=== PATIENT | female | born 1995 | race Caucasian/White ===

== ENCOUNTER 2018-05-17 13:14 | Emergency (ER) | payer MEDICAID ==
[~2018-05-17] VITALS: Ht 180.3 cm; Wt 99.3 kg
[2018-05-17] MEDS ORDERED: sucralfate 1gm/10ml UD suspension PO STA (15:51)
[2018-05-17] MEDS ORDERED: LIDOcaine Viscous 15ml cup MM ONE (15:55)
[2018-05-17] MEDS ORDERED: mag hydrox/Alum hydrox/simeth 30ml oral suspension PO ONE (15:55)
[2018-05-17 16:12] LABS: BASOPHILS % (AUTO) 0.4 % (0-1); EOSINOPHILS # (AUTO) 0.2 X10'3 (0-0.9); EOSINOPHILS % (AUTO) 2.2 % (0-6); HEMATOCRIT 35.3 % (35.0-45.0); HEMOGLOBIN 11.9 g/dl (12.0-16.0); LYMPHOCYTES # (AUTO) 2.2 X10'3 (1.1-4.8); LYMPHOCYTES % (AUTO) 29.6 % (21-51); MEAN CORPUSCULAR HEMOGLOBIN 28.8 PG (27.0-31.0); MEAN CORPUSCULAR HGB CONC 33.6 % (33.0-36.5); MEAN CORPUSCULAR VOLUME 85.4 FL (78-98); MEAN PLATELET VOLUME 8.2 FL (7.4-10.4); MONOCYTES # (AUTO) 0.3 X10'3 (0-0.9); MONOCYTES % (AUTO) 4.1 % (2-12); NEUTROPHILS # (AUTO) 4.6 X10'3 (1.8-7.7); NEUTROPHILS % (AUTO) 63.7 % (42-75); PLATELET COUNT 254 X10'3 (140-440); RED BLOOD COUNT 4.13 X10'6 (4.20-5.60); RED CELL DISTRIBUTION WIDTH 12.9 % (11.5-14.5); WHITE BLOOD COUNT 7.3 X10'3 (4.5-11.0)
[2018-05-17 16:23] LABS: ALANINE AMINOTRANSFERASE 22 U/L (12-78); ALBUMIN 3.5 G/DL (3.4-5.0); ALBUMIN/GLOBULIN RATIO 0.9 (1.1-1.5); ALKALINE PHOSPHATASE 80 IU/L (46-116); ANION GAP 10 (8-16); ASPARTATE AMINO TRANSFERASE 17 U/L (10-37); BILIRUBIN,TOTAL 0.3 MG/DL (0.1-1.0); BLOOD UREA NITROGEN 11 MG/DL (7-18); BUN/CREATININE RATIO 14.3 (6.6-38.0); CALCIUM 8.8 MG/DL (8.5-10.1); CHLORIDE 105 MMOL/L (99-107); CREATININE 0.77 MG/DL (0.40-0.90); GLUCOSE 97 MG/DL (70-104); POTASSIUM 3.8 MMOL/L (3.5-5.1); SODIUM 141 MMOL/L (135-145); TOTAL CARBON DIOXIDE 25.7 MMOL/L (24-32); TOTAL PROTEIN 7.3 G/DL (6.4-8.2); eGFR > 90 ML/MIN
[2018-05-17 16:51] LABS: URINE HCG NEGATIVE (NEG)
[2018-05-17 17:45] VITALS: BP 128/76
[2018-05-17] MEDS ORDERED: ESOM40CA PO (17:46)
[2018-05-18] MEDS ORDERED: pantoprazole 40mg Tablet.DR PO SCH (07:30)
== END 2018-05-17 18:23 | disposition home or self-care (01) ==
LOC: ER 13:15
DX: R10.13 Epigastric pain (principal)
CPT/HCPCS: 36415; 80053; 81025; 85025; 99283; 99284

== ENCOUNTER 2021-01-12 10:31 | Emergency (ER) | payer MEDICAID ==
[~2021-01-12] VITALS: Ht 180.3 cm; Wt 94.0 kg
[2021-01-12 10:46] VITALS: BP 114/73
[2021-01-12] MEDS ORDERED: METH4TAB81 PO (11:36)
[2021-01-12] MEDS ORDERED: DOXY100C77 PO (11:36)
== END 2021-01-12 12:05 | disposition home or self-care (01) ==
LOC: ER 10:32 → MERGE 10:32 → ER 12:05
DX: L02.214 Cutaneous abscess of groin (principal)
CPT/HCPCS: 99283

== ENCOUNTER 2021-01-22 10:15 | Emergency (ER) | payer MEDICAID ==
[~2021-01-22] VITALS: Ht 180.3 cm; Wt 93.6 kg
[~2021-01-22 10:15] MED LIST: DOXY100C77 PO; METH4TAB81 PO
[2021-01-22] MEDS ORDERED: ondansetron/PF 4mg/2ml inj IV ONE (11:05)
[2021-01-22] MEDS ORDERED: morphine 4 MG/ML inj SYRINge IV PRN (11:05)
[2021-01-22] MEDS ORDERED: normal saline 1000ML IV soln IVB ONE (11:05)
[2021-01-22 11:20] LABS: BASOPHILS % (AUTO) 0.2 % (0-1); EOSINOPHILS # (AUTO) 0.2 X10'3 (0-0.9); EOSINOPHILS % (AUTO) 2.1 % (0-6); HEMATOCRIT 39.6 % (35.0-45.0); HEMOGLOBIN 13.3 g/dl (12.0-16.0); LYMPHOCYTES # (AUTO) 1.3 X10'3 (1.1-4.8); LYMPHOCYTES % (AUTO) 13.8 % (21-51); MEAN CORPUSCULAR HEMOGLOBIN 28.9 PG (27.0-31.0); MEAN CORPUSCULAR HGB CONC 33.6 g/dL (33.0-36.5); MEAN CORPUSCULAR VOLUME 86.1 FL (78-98); MEAN PLATELET VOLUME 7.7 FL (7.4-10.4); MONOCYTES # (AUTO) 0.4 X10'3 (0-0.9); MONOCYTES % (AUTO) 4.5 % (2-12); NEUTROPHILS # (AUTO) 7.7 X10'3 (1.8-7.7); NEUTROPHILS % (AUTO) 79.4 % (42-75); PLATELET COUNT 284 X10'3 (140-440); RED CELL DISTRIBUTION WIDTH 13.7 % (11.5-14.5); WHITE BLOOD COUNT 9.7 X10'3 (4.5-11.0)
[2021-01-22 11:32] LABS: ALANINE AMINOTRANSFERASE 18 U/L (12-78); ALBUMIN 3.8 G/DL (3.4-5.0); ALKALINE PHOSPHATASE 83 IU/L (46-116); ANION GAP 11 (8-16); ASPARTATE AMINO TRANSFERASE 18 U/L (10-37); BILIRUBIN,TOTAL 0.5 MG/DL (0.1-1.0); BLOOD UREA NITROGEN 13 MG/DL (7-18); BUN/CREATININE RATIO 14.4 (6.6-38.0); CHLORIDE 106 MMOL/L (99-107); GLUCOSE 98 MG/DL (70-104); LIPASE < 50 U/L (73-393); POTASSIUM 3.7 MMOL/L (3.5-5.1); SODIUM 142 MMOL/L (135-145); TOTAL CARBON DIOXIDE 25.5 MMOL/L (24-32); TOTAL PROTEIN 7.7 G/DL (6.4-8.2); eGFR 76 ML/MIN
[2021-01-22 13:38] LABS: URINE HCG NEGATIVE (NEG)
[2021-01-22] MEDS ORDERED: ketorolac trometh. 30mg/ml inj. IV ONE (13:45)
[2021-01-22 13:46] LABS: CLARITY,URINE SLIGHTLY CLOUDY (Clear); COLOR,URINE YELLOW (Yellow); UA COLLECTION TYPE CLN CATCH MIDSTREAM
[2021-01-22] MEDS ORDERED: iohexol 350MG/ML 100ml bottle IV ONE (13:46)
[2021-01-22 13:52] LABS: PH,URINE 7.5 (4.8-8.0)
[2021-01-22 13:53] LABS: GLUCOSE, URINE NEGATIVE (Neg); KETONES,URINE NEGATIVE (Neg); LEUKOCYTE ESTERASE ,URINE NEGATIVE (Neg); NITRITES, URINE NEGATIVE (Neg); OCCULT BLOOD,URINE TRACE-INTACT (Neg); PROTEIN,URINE NEGATIVE (Neg); UROBILINOGEN,URINE 0.2 E.U/dL (0.2-1.0)
[2021-01-22 13:55] LABS: MUCUS STRANDS MANY /LPF (Neg); SQUAMOUS EPITHELIAL CELL,UR MODERATE /LPF (FEW)
[2021-01-22 13:56] LABS: BACTERIA,URINE NONE SEEN /HPF (Neg); RBC,URINE 0-2 /HPF (0-2); WBC,URINE 0-4 /HPF (0-4)
[2021-01-22] MEDS ORDERED: HYDR-3965 PO (14:49)
[2021-01-22] MEDS ORDERED: ONDA4TAB6 PO (14:49)
[2021-01-22] MEDS ORDERED: PENI250T2 PO (15:03)
[2021-01-22 15:27] VITALS: BP 103/64
== END 2021-01-22 17:08 | disposition home or self-care (01) ==
LOC: ER 10:15
DX: R10.13 Epigastric pain (principal); Z20.822 Contact with and (suspected) exposure to COVID-19; R11.2 Nausea with vomiting, unspecified; R19.7 Diarrhea, unspecified; R53.1 Weakness; R05 Cough; R51.9 Headache, unspecified; K04.7 Periapical abscess without sinus; Z72.89 Other problems related to lifestyle; Z79.2 Long term (current) use of antibiotics; Z79.899 Other long term (current) drug therapy
CPT/HCPCS: 36415; 71045; 74176; 80053; 81001; 81025; 83605; 83690; 84145; 85025; 87040; 87635; 96361; 96374; 96375; 99285; C9803; J1885; J2270; J2405; J7030; Q9967

== ENCOUNTER 2022-02-03 18:03 | Emergency (ER) | payer MEDICAID ==
[~2022-02-03] VITALS: Ht 180.3 cm; Wt 95.5 kg
[~2022-02-03 18:03] MED LIST changes: -DOXY100C77 PO; +ONDA4TAB6 PO
[2022-02-03 18:15] VITALS: BP 148/95
[2022-02-03] MEDS ORDERED: ketorolac trometh inj. 60 MG/2 ML VIAL IM ONE (19:40)
[2022-02-03] MEDS ORDERED: gabapentin 300mg capsule PO ONE (19:40)
[2022-02-03] MEDS ORDERED: IBUP-1986 PO (19:43)
[2022-02-03] MEDS ORDERED: GABA-530 PO (19:43)
== END 2022-02-03 20:02 | disposition home or self-care (01) ==
LOC: ER 18:04
DX: K08.89 Other specified disorders of teeth and supporting structures (principal)
CPT/HCPCS: 96372; 99283; J1885

== ENCOUNTER 2022-05-02 09:53 | Emergency (ER) | payer MEDICAID ==
[~2022-05-02] VITALS: Ht 180.3 cm; Wt 93.2 kg
[~2022-05-02 09:53] MED LIST changes: +GABA-530 PO; +IBUP-1986 PO
[2022-05-02 10:36] VITALS: BP 117/82
[2022-05-02] MEDS ORDERED: azithromycin 250mg tablet PO ONE (12:55)
[2022-05-02] MEDS ORDERED: ondansetron 4mg rapidly disintigrating tab PO ONE (12:55)
[2022-05-02] MEDS ORDERED: CefTRIAXone 500MG IM Kit w/LIDOcaine IM ONE (12:55)
[2022-05-02] MEDS ORDERED: dexamethasone sod phosphate 10mg/ml inj PO STA (13:25)
[2022-05-02 13:58] LABS: CLARITY,URINE CLEAR (Clear); COLOR,URINE YELLOW (Yellow); GLUCOSE, URINE NEGATIVE (Neg); KETONES,URINE NEGATIVE (Neg); LEUKOCYTE ESTERASE ,URINE NEGATIVE (Neg); NITRITES, URINE NEGATIVE (Neg); OCCULT BLOOD,URINE NEGATIVE (Neg); PROTEIN,URINE NEGATIVE (Neg); UROBILINOGEN,URINE 0.2 E.U/dL (0.2-1.0)
[2022-05-02 14:28] LABS: UA COLLECTION TYPE NON-SPECIFIED
== END 2022-05-02 15:43 | disposition home or self-care (01) ==
LOC: ER 09:53
DX: B34.9 Viral infection, unspecified (principal); R07.0 Pain in throat; R10.11 Right upper quadrant pain; Z72.89 Other problems related to lifestyle; Z79.899 Other long term (current) drug therapy
CPT/HCPCS: 70360; 81003; 96372; 99284; J0696; J1100

== ENCOUNTER 2025-05-03 21:38 | Emergency (ER) | payer MEDICAID ==
[~2025-05-03] VITALS: Ht 180.3 cm; Wt 91.4 kg
[2025-05-03 22:10] LABS: MEAN PLATELET VOLUME 7.8 FL (7.4-10.4); RED CELL DISTRIBUTION WIDTH 14.8 % (11.5-14.5)
[2025-05-03 22:31] LABS: CREATININE 0.93 MG/DL (0.40-0.90); TOTAL CARBON DIOXIDE 29.0 MMOL/L (24-32); eCRCL 99 ML/MIN; eGFR 86 ML/MIN
[2025-05-03 23:14] LABS: URINE HCG NEGATIVE (NEG)
[2025-05-03 23:17] LABS: LEUKOCYTE ESTERASE ,URINE NEGATIVE (Neg); NITRITES, URINE NEGATIVE (Neg); OCCULT BLOOD,URINE NEGATIVE (Neg)
[2025-05-03 23:22] LABS: UA COLLECTION TYPE CLN CATCH MIDSTREAM
[2025-05-04 00:21] VITALS: TEMP 97.2
--- NOTE | 2025-05-04 02:35 | Physician Documentation ---
History of Present Illness ~ Chief Complaint: Abdominal Pain Stated Complaint: ABDOMINAL PAIN Time Seen by MD: 02:35 Primary Medical Doctor: none HPI Patient presents to the emergency room for evaluation of right-sided abdominal pain times 3-4 weeks long with multiple joint pains. No fevers. Pain that has not exacerbated with food. Bladder and bowel reported to be normal. Patient endorses history of hypermobile joints. Mild nausea without vomiting Medication Reconciliation Allergies: Coded Allergies: No Known Allergies (Unverified , 05/17/18) Scheduled Ibuprofen (Ibuprofen), 1 TAB PO Q8H Methylprednisolone (Medrol Dosepak), 4 MG PO DAILY Ondansetron Hcl (Zofran), 1 TAB PO Q6H Scheduled PRN Gabapentin (Gabapentin), 1 CAP PO Q8H PRN for pain Past Medical History Past Medical History: No Pertinent History Past Surgical History: no surgical history Alcohol Use: Occasionally Drug Use: none Lives In: Home Occupation: employed Review of Systems ROS All review of systems negative except as per HPI Physical Exam Vital Signs: Temperature: 97.2, Source: Temporal, Heart Rate: 60, Respiratory Rate: 14, BP: 108/78, Pulse Oximetry: 100, Weight: 91.400 Oxygen Flow Rate: 0 Physical Exam General: Patient is awake, alert, oriented x4 in no acute distress. Patient able to hyperextend her limbs Head: Normocephalic and atraumatic. Eyes: Conjunctival normal. EOMI. PERRL. ENT: Mucous membranes moist. Neck: Supple, trachea is midline. Chest: Clear to auscultation bilaterally without rales, rhonchi, or wheezes. There is no accessory muscle use or retractions. Cardiac: RRR without murmurs, gallops, or rubs. Abd: Soft, nondistended, tenderness to palpation just at the end of patient's lateral costophrenic angle. No rebound tenderness, negative Porras's, negative McBurney's Progress Results/Orders Results/Orders Completed Orders - CJ FORD MD Urinalysis, Cult If Indicated (05/03/25 21:40) Hcg, Ur Ql (05/03/25 21:40) Cbc/Diff (05/03/25 21:40) BMP (05/03/25 21:40) Lipase (05/03/25 21:40) CMP (05/03/25 21:40) Vital Signs 05/03/25 05/04/25 22:06 00:21 Temp 98.0 97.2 Pulse 76 60 Resp 18 14 B/P (MAP) 118/69 108/78 (88) Pulse Ox 99 100 O2 Flow Rate 0 Laboratory Tests Test 05/03/25 21:50 05/03/25 22:50 White Blood Count 5.4 Red Blood Count 4.14 L Hemoglobin 11.6 L Hematocrit 35.2 Mean Corpuscular Volume 84.9 Mean Corpuscular Hemoglobin 27.9 Mean Corpuscular Hemoglobin Concent 32.9 L Red Cell Distribution Width 14.8 H Platelet Count 237 Mean Platelet Volume 7.8 Neutrophils (%) (Auto) 54.0 Lymphocytes (%) (Auto) 37.8 Monocytes (%) (Auto) 5.3 Eosinophils (%) (Auto) 1.8 Basophils (%) (Auto) 1.1 H Neutrophils # (Auto) 2.9 Lymphocytes # (Auto) 2.0 Monocytes # (Auto) 0.3 Eosinophils # (Auto) 0.1 Basophils # (Auto) 0.1 CBC Comment Sodium Level 142 Potassium Level 4.4 Chloride Level 109 H Carbon Dioxide Level 29.0 Anion Gap 4 L Blood Urea Nitrogen 16 Creatinine 0.93 H Estimated GFR/1.73 m2 86 BUN/Creatinine Ratio 17.2 Glucose Level 98 Calcium Level 8.7 Total Bilirubin 0.3 Aspartate Amino Transf (AST/SGOT) 19 Alanine Aminotransferase (ALT/SGPT) 19 Alkaline Phosphatase 75 Total Protein 7.3 Albumin 3.6 Globulin 3.7 Albumin/Globulin Ratio 1.0 L Lipase 21 Chemistry Comments Urine Specimen Description Cln catch midstream Urine Color Yellow Urine Clarity Clear Urine pH 7.5 Urine Specific [place] 1.015 Urine Protein Negative Urine Glucose (UA) Negative Urine Ketones Negative Urine Occult Blood Negative Urine Nitrite Negative Urine Bilirubin Negative Urine Urobilinogen 0.2 Urine Leukocyte Esterase Negative Urine Culture Indicated Not ind Volume Urine Centrifuged 10 ml Urine HCG, Qualitative Negative Urine Comment Medical Decision Making Additional information obtaine: old records Findings Patient presents to the emergency room for evaluation of abdominal pain that has per HPI. Differentials include but are not limited to cholecystitis appendicitis pancreatitis diverticulitis constipation urinary tract infection therefore emergent labs ordered which were reassuring. No elevation of liver enzymes and given physical exam I do not feel patient is suffering from classic cholecystitis. No adnexal tenderness or right lower quadrant tenderness to palpation he had not feel patient is suffering from ovarian pathology or appendicitis. Urinalysis is clear. Unknown cause for patient's symptoms. The need to follow up with her doctor discussed in addition to possible HIDA scan on outpatient basis for investigation into different joint swellings in her hands and wrist that has well as possibility of Herrera-Danlos Diff Dx GI Bleed:Consideration: Include: AE fistula, Angiodysplasia, Bleeding diathesis, Blood loss anemia, Carcinoma, Diverticulosis, Diverticulitis, Esophageal varicies, Esophagitis, Gastritis, Gastroenteritis, Inflammatory BD, Adelaida-Sarabia syndrome, Meckel's diverticulum, PUD, Other Diff Dx Pain:Considerations: Include: AAA, -Complete, -Incompl ete, -Inevitable, -Missed, -Threatened, Abruptio placentae, Angina/CO, Aortic dissection, Appendicitis, Bowel obstruction, Cholangitis, Cholecystitis, Cholelithasis, Constipation, Diverticular disease, Dysmenorrhea, Ectopic , Esophageal rupture, Esophagitis, Gastritis/PUD, Gastroenteritis, GI hemorrhage, Hernia, Hepatitis, Inflammatory BD, Ischemic bowel, Mass, Ovarian cyst/torsion, Pancreatitis, PID, Porphyria, Trauma, intraabdominal, Urinary obstruction, Urinary tract infection, Urolithiasis, Other Diff Dx N/V/D:Considerations: Include: Appendicitis, Bowel obstruction, Dehydra tion, DKA, Diarrhea - bacterial, Diarrhea - parasitic, Diarrhea - viral, Diverticulitis, Diverticulosis, Drug toxicity, Electrolyte imbalance, Food poisoning, Gastroenteritis, GE reflux, GI bleed, Hepatitis, Hernia, Hypovolemia, Hypotension, Inflammatory BD, Impaction, Malnutrition, Pancreatitis, , PUD, Renal failure, Urolithiasis, Urinary obstruction, UTI, Other Diff Dx Rectal:Considerations: Include: Fissure, Fistula, Foreign body, Impaction, Perirectal abscess, Rectal prolapse, Subcutaneous abscess, Thrombosed hemorrhoid, Ulcer, UTI, Other Departure Disposition: 01 HOME / SELF CARE / HOMELESS Impression: Primary Impression: Abdominal pain Condition: Stable Discharge Instructions: Abdominal Pain (Nonspecific) Additional Instructions: Your labs today including your liver enzymes, kidney labs and pancreas enzymes were reassuring. Blood count reassuring. No evidence of infection. Possibility of biliary dyskinesia and follow up with your doctor for consid eration of HIDA scan that has well as investigation into fatigue and multiple joint swellings over different time that has well as consideration of Herrera- Danlos. Return for fevers Referrals: NO PRIMARY CARE PROVIDER (PCP) Prescriptions Famotidine (Pepcid) 20 Mg Tablet 1 TAB PO Q12H, #20 TAB 0 Refills Prov: CJ FORD MD 05/04/25 Signature Scribe Signature: No scribe Attestation: The note accurately reflects work and decisions made by me.Cj Ford MD 05/04/25 03:07 CJ FORD MD May 04, 2025 02:35
[2025-05-04] MEDS ORDERED: FAMO-129 PO (03:07)
[2025-05-04 03:11] VITALS: BP 111/69; PULSE 78; RESP 16; O2SAT 99
== END 2025-05-04 03:22 | disposition home or self-care (01) ==
LOC: ER 21:38
DX: R10.9 Unspecified abdominal pain (principal); R11.0 Nausea; Z79.899 Other long term (current) drug therapy; Z72.89 Other problems related to lifestyle
CPT/HCPCS: 36415; 80053; 81003; 81025; 83690; 85025; 99283